=== PATIENT | male | born 1980 | race Caucasian/White ===

== ENCOUNTER 2017-02-08 04:22 | Emergency (ER) | payer OTHER ==
[~2017-02-08] VITALS: Ht 182.9 cm; Wt 74.8 kg
[2017-02-08 04:33] VITALS: BP 123/74
[2017-02-08] MEDS ORDERED: IBUPROFEN600 M1 PO (04:50)
[2017-02-08] MEDS ORDERED: AMOXICILLIN875 M1 PO (04:50)
[2017-02-08] MEDS ORDERED: PERCOCET 5-3251 EACH PO (04:50)
--- NOTE | 2017-02-08 04:52 | ED THROAT/DENTAL COMPLAINT ---
History of Present Illness General Chief Complaint: Sore Throat, Dental Pain Stated Complaint: DENTAL PAIN Source: patient, old records Exam Limitations: no limitations Vital Signs & Intake/Output Vital Signs & Intake/Output Vital Signs Date Time Temp Pulse Resp B/P B/P Pulse O2 O2 Flow FiO2 Mean Ox Delivery Rate 02/08 0433 97.7 54 18 123/74 99 Room Air Allergies Coded Allergies: No Known Allergies (02/08/17) Reconcile Medications Amoxicillin 875 MG TABLET 1 TAB PO BID dental abscess Ibuprofen 600 MG TABLET 1 TAB PO Q6PRN PRN pain with food Oxycodone HCl/Acetaminophen (Percocet 5-325 MG Tablet) 5 MG-325 MG TABLET 1 TAB PO Q6P PRN severe pain Triage Note: PT TO ED C/O LEFT SIDED DENTAL PAIN AND SWELLING SINCE YESTERDAY DUE TO CHIPPED TOOTH. LEFT SIDED JAW SWELLING NOTED. PT DENIES FEVER AND CHILLS Triage Nurses Notes Reviewed? yes Onset: Last week Duration: day(s):, constant, continues in ED, getting worse Timing: recent history Severity: severe Modifying Factors: Worsens With: cold therapy, eating. HPI: 1 week prior to admission patient reports left lower first molar cracked. 2 days prior to admission developed increased pain and swelling to the gums and cheek. He denies fever chills nausea vomiting diarrhea abdominal pain chest pain shortness breath headache dysuria rash bleeding. Past History Travel History Traveled to [place] past 21 day No Medical History Any Pertinent Medical History? none Surgical History Surgical History: non-contributory Family History Hx Contributory? No Review of Systems Review of Systems Constitutional: Reports: no symptoms. EENTM: Reports: see HPI, mouth pain, tooth pain. Respiratory: Reports: no symptoms. Cardiovascular: Reports: no symptoms. GI: Reports: no symptoms. Genitourinary: Reports: no symptoms. Musculoskeletal: Reports: no symptoms. Skin: Reports: no symptoms. Neurological/Psychological: Reports: no symptoms. Hematologic/Endocrine: Reports: no symptoms. Immunologic/Allergic: Reports: no symptoms. All Other Systems: Reviewed and Negative Physical Exam Physical Exam General Appearance: well developed/nourished, alert, awake, anxious, moderate distress Head: atraumatic, swelling, tenderness (left mandible) Eyes: Bilateral: normal appearance, PERRL, EOMI. Ears: Bilateral: canal normal, Tympanic normal. 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 No Severe Sepsis Present: No Septic Shock Present: No Progress Differential Diagnosis: aspirated tooth, carious tooth, odontogenic abscess Plan of Care: Current Medications Sig/Janet Start time Last Medication Dose Stop Time Status Admin Amoxicillin 750 MG ONCE ONE 02/08 050 UNVr (Amoxil) 02/08 050 Ibuprofen 800 MG ONCE ONE 02/08 0500 UNVr (Motrin) 02/08 050 Oxycodone/ 1 TAB ONCE ONE 02/08 050 UNVr Acetaminophen 02/08 050 (Percocet) Departure Departure Time of Disposition: 448 Disposition: HOME OR SELF CARE Condition: Stable Clinical Impression Primary Impression: Dental abscess Referrals: UNKNOWN (PCP/Family) Additional Instructions: Follow up with your dentist Departure Forms: Customer Survey General Discharge Information Prescriptions: Current Visit Scripts Amoxicillin 1 TAB PO BID #20 TAB Ibuprofen 1 TAB PO Q6PRN PRN pain #50 TAB with food Oxycodone HCl/Acetaminophen (Percocet 5-325 MG Tablet) 1 TAB PO Q6P PRN severe pain #15 TAB
== END 2017-02-08 04:57 ==
LOC: ERH 04:22
DX: K04.7 Periapical abscess without sinus (principal)